=== PATIENT | male | born 1980 | race Caucasian/White ===

== ENCOUNTER 2017-10-01 19:47 | Emergency (ER) | END 2017-10-01 22:26 | disposition home or self-care (01) ==

== ENCOUNTER 2019-04-06 05:34 | Emergency (ER) | payer MEDICAID ==
[~2019-04-06] VITALS: Ht 162.6 cm; Wt 79.0 kg
[~2019-04-06 05:34] MED LIST: HYDR-4011 PO; IBUP-1542 PO; IBUP800T48 PO; ONDA4TAB14 PO
[2019-04-06 05:37] VITALS: BP 168/101; PULSE 63; RESP 20; Ht 162.6 cm; Wt 79.0 kg
[2019-04-06] MEDS ORDERED: FAMOTIDINE 20 MG INJ IV STA (06:10)
[2019-04-06] MEDS ORDERED: KETOROLAC 30 MG INJ IV STA (06:10)
== END 2019-04-06 08:14 | disposition home or self-care (01) ==
LOC: FTE 05:34
DX: R10.11 Right upper quadrant pain (principal)
CPT/HCPCS: 36415; 76705; 80053; 81001; 83690; 85025; 96374; 96375; J1885; Z7502; Z7610